=== PATIENT | female | born 1945 | race Caucasian/White ===

== ENCOUNTER → 2017-10-16 | Outpatient (CLI) | payer MEDICARE, BC ==
[2013-10-24 11:35] VITALS: BP 154/76
[~2017-10-16] MED LIST: CLONIDINE0.1 MG PO; SYNTHROID0.05 MG PO
[2017-10-16 12:59] LABS: BASO # 0.1 (0.02-0.10); EOS # 0.2 (0.04-0.40); EOS % 2.8 % (1.0-5.0); HEMATOCRIT 47.4 % (37.0-47.0); HEMOGLOBIN 15.5 g/dL (12.5-16.0); LYMPH# 1.4 (1.50-4.00); MEAN CELL VOLUME 91 fl (78-100); MEAN CORPUSCULAR HEMOGLOBIN 30 pg (27-31); MEAN CORPUSCULAR HGB CONC 33 g/dL (33-37); MEAN PLATELET VOLUME 9.9 fl (7.4-10.4); MONO # 0.4 (0.20-0.80); NEU # 5.1 (1.40-6.50); PLATELET COUNT 218 K/mm3 (130-400); RED BLOOD COUNT 5.23 M/mm3 (4.10-5.30); WHITE BLOOD COUNT 7.2 K/mm3 (4.8-10.8)
[2017-10-16 13:09] LABS: ALBUMIN 4.3 g/dL (3.5-5.0); BUN/CREATININE RATIO 14.2 (6.0-26.0); CALCIUM 9.5 mg/dL (8.4-10.2); POTASSIUM 3.7 mmol/L (3.6-5.0); TOTAL BILIRUBIN 1.2 mg/dL (0.2-1.3); TOTAL PROTEIN 8.2 g/dL (6.3-8.2)
[2017-10-16 14:17] LABS: ERYTHROCYTE SEDIMENTATION RATE 18 mm/hr (0-30)
[2017-10-16 14:55] LABS: PH-URINE 6.5 (5.0 - 8.0); URINE APPEARANCE CLEAR; URINE BILIRUBIN NEGATIVE (NEGATIVE); URINE COLOR YELLOW; URINE GLUCOSE NEGATIVE (NEGATIVE); URINE KETONE NEGATIVE (NEGATIVE); URINE NITRATE NEGATIVE (NEGATIVE); URINE PROTEIN(semi-quant) 1+ mg/dL (NEGATIVE); URINE UROBILINOGEN NORMAL (NORMAL)
[2017-10-16 14:56] LABS: URINE BLOOD TRACE (NEGATIVE); URINE LEUKOCYTE ESTERASE NEGATIVE (NEGATIVE)
== END ==
LOC: LAB 12:36
PROVIDERS: Internal Medicine
DX: E11.9 Type 2 diabetes mellitus without complications (principal); E78.5 Hyperlipidemia, unspecified; I16.0 Hypertensive urgency; E03.9 Hypothyroidism, unspecified; Z12.11 Encounter for screening for malignant neoplasm of colon

== ENCOUNTER → 2018-01-12 | Outpatient (CLI) | payer MEDICARE, BC ==
[2017-12-27 17:00] VITALS: BP 171/91
[2018-01-12 10:14] LABS: BASO # 0.1 (0.02-0.10); EOS # 0.3 (0.04-0.40); EOS % 4.2 % (1.0-5.0); HEMATOCRIT 42.7 % (37.0-47.0); HEMOGLOBIN 14.1 g/dL (12.5-16.0); LYMPH# 1.1 (1.50-4.00); MEAN CELL VOLUME 92 fl (78-100); MEAN CORPUSCULAR HEMOGLOBIN 30 pg (27-31); MEAN CORPUSCULAR HGB CONC 33 g/dL (33-37); MEAN PLATELET VOLUME 9.8 fl (7.4-10.4); MONO # 0.4 (0.20-0.80); PLATELET COUNT 213 K/mm3 (130-400); RED BLOOD COUNT 4.65 M/mm3 (4.10-5.30); RED CELL DISTRIBUTION WIDTH 14.1 % (11.5-14.5); WHITE BLOOD COUNT 6.8 K/mm3 (4.8-10.8)
[2018-01-12 10:29] LABS: ALBUMIN 3.9 g/dL (3.5-5.0); BUN/CREATININE RATIO 14.1 (6.0-26.0); CALCIUM 9.1 mg/dL (8.4-10.2); POTASSIUM 4.1 mmol/L (3.6-5.0); TOTAL BILIRUBIN 0.9 mg/dL (0.2-1.3); TOTAL PROTEIN 7.7 g/dL (6.3-8.2)
== END ==
LOC: LAB 10:03
PROVIDERS: Internal Medicine
DX: E11.9 Type 2 diabetes mellitus without complications (principal); I16.0 Hypertensive urgency; E78.2 Mixed hyperlipidemia; E03.9 Hypothyroidism, unspecified

== ENCOUNTER → 2018-04-19 | Outpatient (CLI) | payer MEDICARE, BC ==
[2017-12-27 17:00] VITALS: BP 171/91
== END ==
LOC: RAD 15:43
DX: M47.816 Spondylosis without myelopathy or radiculopathy, lumbar region (principal); M43.16 Spondylolisthesis, lumbar region

== ENCOUNTER → 2018-06-01 | Outpatient (CLI) | payer MEDICARE, BC ==
[~2018-06-01] VITALS: Ht 162.6 cm; Wt 114.5 kg
[~2018-06-01] MED LIST changes: +GLIMEPIRIDE4 MG PO; +HYZAAR 100-251 EACH PO
[2018-06-01 16:21] VITALS: BP 182/97
[2018-06-01 16:21] LABS: EOS # 0.3 (0.04-0.40); EOS % 3.3 % (1.0-5.0); HEMATOCRIT 40.6 % (37.0-47.0); HEMOGLOBIN 13.7 g/dL (12.5-16.0); LYMPH# 1.5 (1.50-4.00); MEAN CELL VOLUME 93 fl (78-100); MEAN CORPUSCULAR HEMOGLOBIN 31 pg (27-31); MEAN CORPUSCULAR HGB CONC 34 g/dL (33-37); MEAN PLATELET VOLUME 10.1 fl (7.4-10.4); MONO # 0.6 (0.20-0.80); NEU # 5.5 (1.40-6.50); PLATELET COUNT 272 K/mm3 (130-400); RED BLOOD COUNT 4.36 M/mm3 (4.10-5.30); RED CELL DISTRIBUTION WIDTH 14.2 % (11.5-14.5); WHITE BLOOD COUNT 7.8 K/mm3 (4.8-10.8)
[2018-06-01 16:50] LABS: CALCIUM 9.2 mg/dL (8.4-10.2)
[2018-06-01 17:52] LABS: POTASSIUM 2.9 mmol/L (3.6-5.0)
[2018-06-01 17:54] LABS: PH-URINE 5.5 (5.0 - 8.0); URINE APPEARANCE HAZY; URINE BILIRUBIN NEGATIVE (NEGATIVE); URINE COLOR YELLOW; URINE GLUCOSE NEGATIVE (NEGATIVE); URINE KETONE NEGATIVE (NEGATIVE); URINE PROTEIN(semi-quant) TRACE mg/dL (NEGATIVE); URINE UROBILINOGEN NORMAL (NORMAL)
[2018-06-01 17:55] LABS: URINE BLOOD NEGATIVE (NEGATIVE); URINE LEUKOCYTE ESTERASE NEGATIVE (NEGATIVE); URINE NITRATE NEGATIVE (NEGATIVE)
== END ==
LOC: AMSURD 14:39
PROVIDERS: Physician Assistant
DX: I95.1 Orthostatic hypotension (principal); R42 Dizziness and giddiness
CPT/HCPCS: J7030

== ENCOUNTER → 2018-06-02 | Outpatient (CLI) | payer MEDICARE, BC ==
[2018-06-01 16:21] VITALS: BP 182/97
[2018-06-02 13:59] LABS: CALCIUM 9.4 mg/dL (8.4-10.2); POTASSIUM 3.3 mmol/L (3.6-5.0)
== END ==
LOC: LAB 13:38
PROVIDERS: Physician Assistant
DX: E87.6 Hypokalemia (principal)

== ENCOUNTER → 2019-04-29 | Outpatient (CLI) | payer MEDICARE, BC ==
[2018-06-01 16:21] VITALS: BP 182/97
[2019-04-29 14:41] LABS: BASO # 0.1 (0.02-0.10); EOS # 0.2 (0.04-0.40); EOS % 3.3 % (1.0-5.0); HEMATOCRIT 39.2 % (37.0-47.0); HEMOGLOBIN 12.9 g/dL (12.5-16.0); LYMPH# 1.4 (1.50-4.00); MEAN CELL VOLUME 90 fl (78-100); MEAN CORPUSCULAR HEMOGLOBIN 30 pg (27-31); MEAN CORPUSCULAR HGB CONC 33 g/dL (33-37); MEAN PLATELET VOLUME 10.4 fl (7.4-10.4); MONO # 0.3 (0.20-0.80); PLATELET COUNT 211 K/mm3 (130-400); RED BLOOD COUNT 4.35 M/mm3 (4.10-5.30); RED CELL DISTRIBUTION WIDTH 13.7 % (11.5-14.5)
[2019-04-29 15:01] LABS: POTASSIUM 3.9 mmol/L (3.5-5.1)
[2019-04-29 15:02] LABS: CALCIUM 9.7 mg/dL (8.3-10.5)
[2019-04-29 15:03] LABS: TOTAL PROTEIN 7.3 g/dL (6.2-8.1)
[2019-04-29 15:05] LABS: TOTAL BILIRUBIN 0.8 mg/dL (0.2-1.2)
[2019-04-29 15:10] LABS: MAGNESIUM 1.65 mg/dL (1.60-2.60)
[2019-04-29 15:36] LABS: PH-URINE 5.5 (5.0 - 8.0); URINE APPEARANCE HAZY; URINE COLOR YELLOW
[2019-04-29 15:37] LABS: URINE BILIRUBIN NEGATIVE (NEGATIVE); URINE BLOOD NEGATIVE (NEGATIVE); URINE GLUCOSE NEGATIVE (NEGATIVE); URINE KETONE NEGATIVE (NEGATIVE); URINE LEUKOCYTE ESTERASE TRACE (NEGATIVE); URINE NITRATE NEGATIVE (NEGATIVE); URINE PROTEIN(semi-quant) TRACE mg/dL (NEGATIVE); URINE UROBILINOGEN NORMAL (NORMAL)
[2019-04-29 16:09] LABS: ERYTHROCYTE SEDIMENTATION RATE 29 mm/hr (0-30)
== END ==
LOC: LAB 14:15
PROVIDERS: Internal Medicine
DX: Z12.11 Encounter for screening for malignant neoplasm of colon (principal); I16.0 Hypertensive urgency; E11.9 Type 2 diabetes mellitus without complications; K90.9 Intestinal malabsorption, unspecified; E78.5 Hyperlipidemia, unspecified; E03.9 Hypothyroidism, unspecified

== ENCOUNTER → 2019-05-09 | Outpatient (CLI) | payer MEDICARE, BC ==
[2018-06-01 16:21] VITALS: BP 182/97
== END ==
LOC: LAB 11:01
DX: Z12.11 Encounter for screening for malignant neoplasm of colon (principal); E11.9 Type 2 diabetes mellitus without complications; I16.0 Hypertensive urgency

== ENCOUNTER → 2019-06-24 | Outpatient (CLI) | payer MEDICARE, BC ==
[2018-06-01 16:21] VITALS: BP 182/97
[2019-06-24 11:52] LABS: URINE APPEARANCE CLOUDY; URINE BILIRUBIN NEGATIVE (NEGATIVE); URINE BLOOD NEGATIVE (NEGATIVE); URINE COLOR YELLOW; URINE GLUCOSE NEGATIVE (NEGATIVE); URINE KETONE NEGATIVE (NEGATIVE); URINE LEUKOCYTE ESTERASE NEGATIVE (NEGATIVE); URINE NITRATE NEGATIVE (NEGATIVE); URINE PROTEIN(semi-quant) TRACE mg/dL (NEGATIVE); URINE UROBILINOGEN 1 mg/dL (NORMAL)
[2019-06-24 11:53] LABS: URINE MUCUS PRESENT (NOT PRESENT)
== END ==
LOC: RAD 10:00
PROVIDERS: Internal Medicine
DX: M25.811 Other specified joint disorders, right shoulder (principal); E11.9 Type 2 diabetes mellitus without complications; I16.0 Hypertensive urgency; E78.5 Hyperlipidemia, unspecified

== ENCOUNTER → 2020-04-02 | Outpatient (CLI) | payer MEDICARE, BC ==
[2018-06-01 16:21] VITALS: BP 182/97
[2020-04-02 16:44] LABS: BASO # 0.1 (0.02-0.10); EOS # 0.3 (0.04-0.40); EOS % 3.8 % (1.0-5.0); HEMATOCRIT 41.3 % (37.0-47.0); HEMOGLOBIN 13.7 g/dL (12.5-16.0); LYMPH# 1.6 (1.50-4.00); MEAN CELL VOLUME 93 fl (78-100); MEAN CORPUSCULAR HEMOGLOBIN 31 pg (27-31); MEAN CORPUSCULAR HGB CONC 33 g/dL (33-37); MEAN PLATELET VOLUME 9.9 fl (7.4-10.4); MONO # 0.4 (0.20-0.80); NEU # 4.7 (1.40-6.50); PLATELET COUNT 225 K/mm3 (130-400); RED BLOOD COUNT 4.46 M/mm3 (4.10-5.30); RED CELL DISTRIBUTION WIDTH 13.6 % (11.5-14.5)
[2020-04-02 16:53] LABS: POTASSIUM 4.1 mmol/L (3.5-5.1); URINE APPEARANCE CLEAR; URINE COLOR YELLOW
[2020-04-02 16:54] LABS: CALCIUM 9.5 mg/dL (8.3-10.5); URINE BILIRUBIN NEGATIVE (NEGATIVE); URINE BLOOD NEGATIVE (NEGATIVE); URINE KETONE NEGATIVE (NEGATIVE); URINE LEUKOCYTE ESTERASE NEGATIVE (NEGATIVE); URINE NITRATE NEGATIVE (NEGATIVE); URINE PROTEIN(semi-quant) TRACE mg/dL (NEGATIVE); URINE UROBILINOGEN NORMAL (NORMAL)
[2020-04-02 16:55] LABS: TOTAL PROTEIN 7.2 g/dL (6.2-8.1)
[2020-04-02 16:57] LABS: TOTAL BILIRUBIN 0.5 mg/dL (0.2-1.2)
[2020-04-02 17:00] LABS: PROTHROMBIN TIME 9.3 SECONDS (9.0-12.0)
[2020-04-02 17:02] LABS: MAGNESIUM 1.77 mg/dL (1.60-2.60)
== END ==
LOC: LAB 16:13
PROVIDERS: Internal Medicine
DX: Z01.818 Encounter for other preprocedural examination (principal); E11.9 Type 2 diabetes mellitus without complications; H26.9 Unspecified cataract; I49.3 Ventricular premature depolarization; E03.4 Atrophy of thyroid (acquired); I16.0 Hypertensive urgency

== ENCOUNTER → 2020-06-09 | Outpatient (CLI) | payer MEDICARE, BC ==
[2018-06-01 16:21] VITALS: BP 182/97
== END ==
LOC: LAB 07:25
DX: U07.1 COVID-19 (principal)

== ENCOUNTER 2020-06-26 08:39 | Outpatient (RCR) | payer MEDICARE, BC ==
[~2020-06-26] VITALS: Ht 162.6 cm; Wt 114.5 kg
[~2020-06-26 08:39] MED LIST changes: +CLONIDINE HYDR0.1 MG PO; -CLONIDINE0.1 MG PO
[2020-06-26 09:01] VITALS: BP 192/102
--- NOTE | 2020-06-26 10:30 | NUR ---
THE PT'S BP IS NOTED TO BE ELEVATED AT 183/92. DR. ACEVEDO IS NOTIFIED OF THIS BLOOD PRESSURE. DR. ACEVEDO GIVES A VERBAL ORDER TO GIVE CLONIDINE 0.1MG PO NOW FOR HYPERTENSION. THIS ORDER IS REPEATED BACK BY THIS RN AND CONFIRMED BY DR. ACEVEDO.
[2020-06-26 11:45] VITALS: BP 183/82
[2020-06-26 12:25] VITALS: BP 143/76
== END 2020-07-20 | disposition still patient (30) ==
LOC: AMSURD
DX: U07.1 COVID-19 (principal)
CPT/HCPCS: J7030

== ENCOUNTER → 2020-07-21 | Outpatient (CLI) | payer MEDICARE, BC ==
[2020-06-26 12:25] VITALS: BP 143/76
[2020-07-21 11:37] LABS: EOS # 0.3 (0.04-0.40); HEMATOCRIT 39.4 % (37.0-47.0); HEMOGLOBIN 12.8 g/dL (12.5-16.0); LYMPH# 1.2 (1.50-4.00); MEAN CELL VOLUME 95 fl (78-100); MEAN CORPUSCULAR HEMOGLOBIN 31 pg (27-31); MEAN CORPUSCULAR HGB CONC 33 g/dL (33-37); MEAN PLATELET VOLUME 9.6 fl (7.4-10.4); MONO # 0.3 (0.20-0.80); NEU # 4.6 (1.40-6.50); PLATELET COUNT 248 K/mm3 (130-400); RED BLOOD COUNT 4.15 M/mm3 (4.10-5.30); RED CELL DISTRIBUTION WIDTH 16.2 % (11.5-14.5); WHITE BLOOD COUNT 6.4 K/mm3 (4.8-10.8)
[2020-07-21 11:42] LABS: POTASSIUM 3.8 mmol/L (3.5-5.1)
[2020-07-21 11:43] LABS: CALCIUM 9.2 mg/dL (8.3-10.5)
[2020-07-21 11:45] LABS: TOTAL PROTEIN 7.2 g/dL (6.2-8.1)
[2020-07-21 11:46] LABS: TOTAL BILIRUBIN 0.8 mg/dL (0.2-1.2)
== END ==
LOC: LAB 11:16
PROVIDERS: Internal Medicine
DX: E11.9 Type 2 diabetes mellitus without complications (principal)

== ENCOUNTER → 2022-03-14 | Outpatient (CLI) | payer MEDICARE, BC ==
[2022-03-14 12:24] LABS: ALBUMIN 4.1 g/dL (3.4-4.8)
[2022-03-14 12:25] LABS: CALCIUM 9.2 mg/dL (8.3-10.5)
[2022-03-14 12:27] LABS: BASO # 0.05 K/mm3 (0.02-0.10); EOS # 0.21 K/mm3 (0.04-0.40); EOS % 3.3 % (1.0-5.0); HEMATOCRIT 46.8 % (37.0-47.0); HEMOGLOBIN 15.4 g/dL (12.5-16.0); LYMPH# 1.18 K/mm3 (1.50-4.00); MEAN CELL VOLUME 93 fl (78-100); MEAN CORPUSCULAR HEMOGLOBIN 31 pg (27-31); MEAN CORPUSCULAR HGB CONC 33 g/dL (33-37); MEAN PLATELET VOLUME 9.8 fl (7.4-10.4); MONO # 0.26 K/mm3 (0.20-0.80); NEU # 4.66 K/mm3 (1.40-6.50); PLATELET COUNT 217 K/mm3 (130-400); RED BLOOD COUNT 5.05 M/mm3 (4.10-5.30); RED CELL DISTRIBUTION WIDTH 12.9 % (11.5-14.5); TOTAL PROTEIN 7.2 g/dL (6.2-8.1); WHITE BLOOD COUNT 6.4 K/mm3 (4.8-10.8)
[2022-03-14 12:29] LABS: TOTAL BILIRUBIN 1.2 mg/dL (0.2-1.2)
[2022-03-14 12:35] LABS: MAGNESIUM 2.05 mg/dL (1.60-2.60)
[2022-03-14 13:04] LABS: URINE APPEARANCE CLEAR; URINE COLOR YELLOW; URINE GLUCOSE NEGATIVE (NEGATIVE); URINE KETONE NEGATIVE (NEGATIVE); URINE PROTEIN(semi-quant) NEGATIVE (NEGATIVE)
[2022-03-14 13:05] LABS: URINE BILIRUBIN 1+ (NEGATIVE); URINE BLOOD TRACE (NEGATIVE); URINE LEUKOCYTE ESTERASE 1+ (NEGATIVE); URINE MUCUS PRESENT (NOT PRESENT); URINE NITRATE NEGATIVE (NEGATIVE); URINE UROBILINOGEN 4 mg/dL (NORMAL)
== END ==
LOC: LAB 11:50
PROVIDERS: Internal Medicine
DX: E78.5 Hyperlipidemia, unspecified (principal); T14.8XXA Other injury of unspecified body region, initial encounter; E03.9 Hypothyroidism, unspecified; E11.9 Type 2 diabetes mellitus without complications; I49.3 Ventricular premature depolarization; N39.46 Mixed incontinence; I10 Essential (primary) hypertension; E66.01 Morbid (severe) obesity due to excess calories; G47.33 Obstructive sleep apnea (adult) (pediatric)

== ENCOUNTER 2023-05-12 15:39 | Emergency (ER) | payer MEDICARE, BC ==
[~2023-05-12] VITALS: Ht 162.6 cm; Wt 90.5 kg
[2023-05-12] MEDS ORDERED: CLONIDINE HCL0.1 M1 PO (18:54)
[2023-05-12 19:44] VITALS: BP 191/94
== END 2023-05-12 19:44 | disposition home or self-care (01) ==
LOC: ED 15:39
DX: S02.91XA Unspecified fracture of skull, initial encounter for closed fracture (principal); S00.03XA Contusion of scalp, initial encounter; I10 Essential (primary) hypertension; W01.10XA Fall on same level from slipping, tripping and stumbling with subsequent striking against unspecified object, initial encounter; Y92.009 Unspecified place in unspecified non-institutional (private) residence as the place of occurrence of the external cause

== ENCOUNTER → 2024-01-01 | Outpatient (CLI) | payer MEDICARE, BC ==
[~2024-01-01] MED LIST changes: +CLONIDINE HCL0.1 M1 PO
[2024-01-01 15:56] LABS: URINE COLOR YELLOW (YELLOW)
[2024-01-01 15:57] LABS: URINE APPEARANCE CLOUDY (CLEAR); URINE PROTEIN(semi-quant) NEGATIVE (NEGATIVE)
[2024-01-01 15:58] LABS: URINE BILIRUBIN 1+ (NEGATIVE); URINE GLUCOSE NEGATIVE (NEGATIVE); URINE KETONE NEGATIVE (NEGATIVE)
[2024-01-01 15:59] LABS: URINE BLOOD NEGATIVE (NEGATIVE); URINE LEUKOCYTE ESTERASE TRACE (NEGATIVE); URINE NITRATE NEGATIVE (NEGATIVE)
[2024-01-01 16:00] LABS: URINE MUCUS PRESENT (NOT PRESENT)
== END ==
LOC: LAB 15:21
PROVIDERS: Internal Medicine
DX: N39.0 Urinary tract infection, site not specified (principal)

== ENCOUNTER → 2024-04-15 | Outpatient (CLI) | payer MEDICARE, BC ==
[2024-04-15 15:21] LABS: BASO # 0.01 K/mm3 (0.02-0.10); EOS # 0.23 K/mm3 (0.04-0.40); EOS % 3.2 % (1.0-5.0); HEMATOCRIT 41.6 % (37.0-47.0); HEMOGLOBIN 13.8 g/dL (12.5-16.0); LYMPH# 1.52 K/mm3 (1.50-4.00); MEAN CELL VOLUME 90 fl (78-100); MEAN CORPUSCULAR HEMOGLOBIN 30 pg (27-31); MEAN CORPUSCULAR HGB CONC 33 g/dL (33-37); MEAN PLATELET VOLUME 9.9 fl (7.4-10.4); NEU # 5.22 K/mm3 (1.40-6.50); PLATELET COUNT 189 K/mm3 (130-400); RED BLOOD COUNT 4.63 M/mm3 (4.10-5.30); RED CELL DISTRIBUTION WIDTH 13.8 % (11.5-14.5); WHITE BLOOD COUNT 7.3 K/mm3 (4.8-10.8)
[2024-04-15 15:29] LABS: ALBUMIN 3.8 g/dL (3.4-4.8)
[2024-04-15 15:30] LABS: CALCIUM 10.2 mg/dL (8.3-10.5)
[2024-04-15 15:32] LABS: TOTAL PROTEIN 6.5 g/dL (6.2-8.1)
[2024-04-15 15:33] LABS: TOTAL BILIRUBIN 1.5 mg/dL (0.2-1.2)
[2024-04-15 15:38] LABS: MAGNESIUM 1.81 mg/dL (1.60-2.60)
== END ==
LOC: LAB 15:10
PROVIDERS: Internal Medicine
DX: I10 Essential (primary) hypertension (principal); E78.5 Hyperlipidemia, unspecified; E03.9 Hypothyroidism, unspecified; E11.9 Type 2 diabetes mellitus without complications

== ENCOUNTER → 2024-08-13 | Outpatient (CLI) | payer MEDICARE, BC ==
[2024-08-13 08:51] LABS: BASO # 0.02 K/mm3 (0.02-0.10); EOS # 0.22 K/mm3 (0.04-0.40); EOS % 3.8 % (1.0-5.0); HEMATOCRIT 43.5 % (37.0-47.0); HEMOGLOBIN 14.1 g/dL (12.5-16.0); LYMPH# 0.96 K/mm3 (1.50-4.00); MEAN CELL VOLUME 92 fl (78-100); MEAN CORPUSCULAR HEMOGLOBIN 30 pg (27-31); MEAN CORPUSCULAR HGB CONC 32 g/dL (33-37); MEAN PLATELET VOLUME 9.7 fl (7.4-10.4); MONO # 0.31 K/mm3 (0.20-0.80); NEU # 4.29 K/mm3 (1.40-6.50); PLATELET COUNT 170 K/mm3 (130-400); RED BLOOD COUNT 4.75 M/mm3 (4.10-5.30); RED CELL DISTRIBUTION WIDTH 13.4 % (11.5-14.5); WHITE BLOOD COUNT 5.8 K/mm3 (4.8-10.8)
[2024-08-13 09:01] LABS: ALBUMIN 3.9 g/dL (3.4-4.8)
[2024-08-13 09:02] LABS: CALCIUM 9.4 mg/dL (8.3-10.5)
[2024-08-13 09:06] LABS: TOTAL BILIRUBIN 1.2 mg/dL (0.2-1.2)
[2024-08-13 09:10] LABS: MAGNESIUM 1.68 mg/dL (1.60-2.60)
== END ==
LOC: LAB 08:28
PROVIDERS: Internal Medicine
DX: I10 Essential (primary) hypertension (principal); E11.9 Type 2 diabetes mellitus without complications